=== PATIENT | male | born 1960 | race Caucasian/White ===

== ENCOUNTER 2019-04-19 18:56 | Inpatient (IN) | payer SELFPAY ==
[~2019-04-19] VITALS: Ht 157.5 cm; Wt 73.7 kg
[2019-04-19 20:05] LABS: BASOPHIL % 1.5 % (0-2); PLATELET COUNT 236 x10^3mcL (130-400); RED CELL DISTRIBUTION WIDTH 12.8 % (11.5-14.5)
[2019-04-19 20:13] LABS: CALCIUM 9.5 mg/dL (8.5-10.1); CARBON DIOXIDE 34.1 mmol/L (21-32); CHLORIDE SERUM 100 mmol/L (98-107); CREATININE SERUM 0.8 mg/dL (0.7-1.3); GFR1 > 60 mL/min; GLUCOSE SERUM 217 mg/dL (74-106); POTASSIUM SERUM 3.6 mmol/L (3.5-5.1); SODIUM SERUM 137 mmol/L (136-145)
[2019-04-19 20:17] LABS: ALKALINE PHOSPHATASE 72 U/L (46-116); ALT/SGPT 26 U/L (16-63); AST/SGOT 7 U/L (15-37); BILIRUBIN TOTAL 0.5 mg/dL (0.20-1.00); LIPASE 116 IU/L (73-393); TOTAL PROTEIN, SERUM 7.3 g/dL (6.4-8.2)
[2019-04-19] MEDS ORDERED: METFORMIN HYD1000 M2 PO (22:00)
[2019-04-19 22:31] LABS: MAGNESIUM 1.8 mg/dL (1.8-2.4)
[2019-04-19 22:32] LABS: CHOLESTEROL/HDL RATIO 5.4
[2019-04-19 22:38] VITALS: BP 135/80
[2019-04-20 03:14] LABS: microscopic required? NO
[2019-04-20 03:22] LABS: urine erythrocyte NEGATIVE (NEGATIVE)
[2019-04-20 05:45] VITALS: BP 138/74
[2019-04-20 07:00] LABS: BASOPHIL % 0.3 % (0-2); PLATELET COUNT 205 x10^3mcL (130-400); RED CELL DISTRIBUTION WIDTH 13.3 % (11.5-14.5)
[2019-04-20 07:49] VITALS: BP 110/67
[2019-04-20 11:00] LABS: CALCIUM 8.4 mg/dL (8.5-10.1); CARBON DIOXIDE 32.7 mmol/L (21-32); CHLORIDE SERUM 101 mmol/L (98-107); CREATININE SERUM 0.9 mg/dL (0.7-1.3); GFR1 > 60 mL/min; GLUCOSE SERUM 235 mg/dL (74-106); POTASSIUM SERUM 3.9 mmol/L (3.5-5.1); SODIUM SERUM 137 mmol/L (136-145)
[2019-04-20 11:45] VITALS: BP 121/74
[2019-04-20 15:56] VITALS: BP 116/74
[2019-04-20 21:18] VITALS: BP 117/81
[2019-04-21 04:53] VITALS: BP 139/83
[2019-04-21 07:16] LABS: BASOPHIL % 0.6 % (0-2); PLATELET COUNT 212 x10^3mcL (130-400); RED CELL DISTRIBUTION WIDTH 13.2 % (11.5-14.5)
[2019-04-21 07:41] LABS: CALCIUM 9.2 mg/dL (8.5-10.1); CARBON DIOXIDE 27.2 mmol/L (21-32); CHLORIDE SERUM 105 mmol/L (98-107); CREATININE SERUM 0.8 mg/dL (0.7-1.3); GFR1 > 60 mL/min; GLUCOSE SERUM 187 mg/dL (74-106); PHOSPHOROUS 3.4 mg/dL (2.5-4.9); SODIUM SERUM 141 mmol/L (136-145)
[2019-04-21 09:46] VITALS: BP 165/91
[2019-04-21 11:00] VITALS: BP 148/75
[2019-04-21] MEDS ORDERED: LEVOFLOXACIN500 M1 PO (11:47)
[2019-04-21] MEDS ORDERED: FLA500 PO (11:48)
[2019-04-21] MEDS ORDERED: APAP/HYDROCODON1 T13 PO (11:48)
[2019-04-21 12:56] VITALS: BP 148/75
== END 2019-04-21 14:37 | disposition home or self-care (01) | DRG 392 ==
LOC: ED 18:56 → MU 21:50
PROVIDERS: Emergency Medicine; ADMIT Family Medicine
DX: K57.32 Diverticulitis of large intestine without perforation or abscess without bleeding (principal); I10 Essential (primary) hypertension; E78.00 Pure hypercholesterolemia, unspecified; F17.210 Nicotine dependence, cigarettes, uncomplicated; E11.65 Type 2 diabetes mellitus with hyperglycemia; E78.5 Hyperlipidemia, unspecified; K80.20 Calculus of gallbladder without cholecystitis without obstruction
CPT/HCPCS: 82962; J1956; J2270; J2405; J2543; J3490; J7030; Q0092